=== PATIENT | female | born 1990 | race Caucasian/White ===

== ENCOUNTER 2019-03-13 13:25 | Emergency (ER) | payer OTHER ==
[~2019-03-13] VITALS: Ht 172.7 cm; Wt 57.8 kg
[2019-03-13 13:46] VITALS: BP 110/82
[2019-03-13] MEDS ORDERED: FLUORESCEIN OPHTHALMIC 1 MG STRIP ONE (13:53)
[2019-03-13] MEDS ORDERED: PROPARACAINE OPHTH 0.5%, 15ML ONE (13:53)
[2019-03-13] MEDS ORDERED: FLUORESCEIN OPHTHALMIC 1 MG STRIP EACHEYE ONE (14:00)
[2019-03-13] MEDS ORDERED: PROPARACAINE OPHTH 0.5%, 15ML EACHEYE ONE (14:00)
== END 2019-03-13 14:30 | disposition home or self-care (01) ==
LOC: ED 14:15
DX: S05.02XA Injury of conjunctiva and corneal abrasion without foreign body, left eye, initial encounter (principal); W22.8XXA Striking against or struck by other objects, initial encounter; Y93.89 Activity, other specified; Y92.89 Other specified places as the place of occurrence of the external cause; Y99.8 Other external cause status
CPT/HCPCS: 99282